=== PATIENT | female | born 1955 | race Caucasian/White ===

== ENCOUNTER 2020-11-09 19:38 | Emergency (ER) | payer OTHER ==
[2020-11-09] MEDS ORDERED: Morphine 4 MG/ML VIAL IVPUSH STA (19:43)
[2020-11-09] MEDS ORDERED: Sodium Chloride 0.9% 10 ML Syringe FLUSH PRN (19:43)
[2020-11-09] MEDS ORDERED: Sodium Chloride 0.9% 1,000 ML IV SCH (19:45)
[2020-11-09] MEDS ORDERED: Iopamidol 755 Mg/ML 100 ML Bottle IV ONE (20:57)
[2020-11-09] MEDS ORDERED: Labetalol 20 MG/4 ML Syringe IVPUSH STA (22:04)
[2020-11-09] MEDS ORDERED: Tamsulosin 0.4 MG Cap.ER PO STA (22:08)
[2020-11-09] MEDS ORDERED: Ketorolac 30 MG/ML SDV IVPUSH STA (22:08)
--- NOTE | 2020-11-09 22:10 | EDM.PDOC ---
ED HPI GENERAL MEDICAL PROBLEM - General Chief Complaint: General Stated Complaint: back and abodminal pain Time Seen by Provider: 11/09/20 19:55 Source of Information: Reports: Patient History Limitations: Reports: No Limitations - History of Present Illness INITIAL COMMENTS - FREE TEXT/NARRATIVE: Patient presented to the ED because of RT and Left flank pain which started yest erday and worse today,. the pain is sharp,8/10. there is no nausea,vomiting, fever,chills. No N/V/D or constipation. - Related Data Allergies Allergy/AdvReac Type Severity Reaction Status Date / Time No Known Allergies Allergy Verified 11/10/20 03:25 Home Meds: Home Meds Albuterol [Proair HFA] 2 puff PO Q4HR PRN 07/21/16 [History] Budesonide/Formoterol [Symbicort 160-4.5 MCG] 2 puff INH BID PRN 07/21/16 [History] Triamcinolone Acetonide 1 applic TOP TID PRN 07/21/16 [History] Venlafaxine [Venlafaxine HCl ER] 150 mg PO DAILY 07/21/16 [History] atorvaSTATin Calcium [Atorvastatin Calcium] 80 mg PO DAILY 07/21/16 [History] Acetaminophen/HYDROcodone [[place] 325-5 MG] 1 - 2 tab PO Q4H PRN #15 tab 11/09/20 [Rx] Tamsulosin HCl [Flomax] 0.4 mg PO DAILY #10 cap.er.24h 11/09/20 [Rx] .Calcium 1 dose PO DAILY 11/10/20 [History] .Multivitamin 1 dose PO DAILY 11/10/20 [History] .Vitamin B6 1 dose PO DAILY 11/10/20 [History] .Vitamin D 1 dose PO DAILY 11/10/20 [History] lisinopriL [Lisinopril] 5 mg PO DAILY 11/10/20 [History] metFORMIN [Glucophage] 500 mg PO BIDMEALS 11/10/20 [History] Past Medical History HEENT History: Reports: Allergic Rhinitis Cardiovascular History: Reports: High Cholesterol, Hypertension Respiratory History: Reports: Asthma, Sleep Apnea Gastrointestinal History: Reports: GERD Musculoskeletal History: Reports: Back Pain, Chronic Neurological History: Reports: Migraines Endocrine/Metabolic History: Reports: Diabetes, Type II Dermatologic History: Reports: Eczema - Past Surgical History GI Surgical History: Reports: Bariatric Procedure, Cholecystectomy Female Surgical History: Reports: Section Social & Family History - Caffeine Use Caffeine Use: Reports: Coffee ED ROS GENERAL - Review of Systems Review Of Systems: See Below Constitutional: Reports: No Symptoms HEENT: Reports: No Symptoms Respiratory: Reports: No Symptoms Cardiovascular: Reports: No Symptoms Endocrine: Reports: No Symptoms GI/Abdominal: Reports: Abdominal Pain : Reports: No Symptoms Musculoskeletal: Reports: No Symptoms Skin: Reports: No Symptoms Neurological: Reports: No Symptoms Psychiatric: Reports: No Symptoms Hematologic/Lymphatic: Reports: No Symptoms ED EXAM, GENERAL - Physical Exam Exam: See Below Exam Limited By: No Limitations General Appearance: Alert, No Apparent Distress Ears: Normal External Exam, Normal Canal Nose: Normal Inspection, Normal Mucosa, No Blood Throat/Mouth: Normal Inspection Head: Atraumatic, Normocephalic Neck: Normal Inspection, Supple, Non-Tender, Full Range of Motion Respiratory/Chest: No Respiratory Distress, Lungs Clear, Normal Breath Sounds, No Accessory Muscle Use, Chest Non-Tender Cardiovascular: Normal Peripheral Pulses, Regular Rate, Rhythm, No Edema, No Gallop, No JVD, No Murmur, No Rub GI/Abdominal: Normal Bowel Sounds, Soft, No Organomegaly, No Distention, Other (RCVAT) Back Exam: Normal Inspection Extremities: Normal Inspection, Normal Range of Motion Neurological: Oriented, CN II-XII Intact, Normal Cognition, Normal Gait Psychiatric: Normal Affect Course - Vital Signs Text/Narrative:: Labd/CT result was reviewed and discussed with patient NS 1 L bolus Toradol 30 mg IV x1 Morphine 4 mg IV x1 Flomax 1 PO x1 Patient developed hypertensive crisis while in the ED most likely because of her pain. Labetalol 20 mg IV was given and her BP was 150/99 prior to discharge and asymptomatic. Last Recorded V/S: Last Vital Signs Temp 36.6 C 11/09/20 19:50 Pulse 86 11/09/20 22:40 Resp 18 11/09/20 22:40 BP 156/91 H 11/09/20 22:40 Pulse Ox 96 11/09/20 22:40 - Orders/Labs/Meds Orders: Active Orders 24 hr Category Date Time Status Abdomen Pelvis w Cont [CT] Stat Exams 11/09/20 20:45 Taken Saline Lock Insert [OM.PC] Routine Oth 11/09/20 19:43 Ordered Labs: Laboratory Tests 11/09/20 11/09/20 11/09/20 Range/Units 20:00 20:00 20:00 WBC 14.7 H (3.0-10.3) x10-3/uL RBC 4.72 (3.60-5.20) x10(6)uL Hgb 11.1 L (11.4-15.5) g/dL Hct 36.0 (34.2-48.2) % MCV 76.4 L (76.7-100.5) fL MCH 23.6 L (23.9-33.9) pg MCHC 30.9 L (31.9-34.8) g/dL RDW 15.7 (12.3-16.5) % Plt Count 297 (151-488) x10(3)uL MPV 9.4 (7.1-12.4) fL Add Manual Diff Yes Neutrophils % (Manual) 88 H (46-82) % Band Neutrophils % 1 (0-6) % Lymphocytes % (Manual) 7 L (13-37) % Monocytes % (Manual) 4 (4-12) % Sodium 140 (135-145) mmol/L Potassium 3.8 (3.5-5.3) mmol/L Chloride 98 L (100-110) mmol/L Carbon Dioxide 27 (21-32) mmol/L BUN 13 (7-18) mg/dL Creatinine 0.9 (0.55-1.02) mg/dL Est Cr Clr Drug Dosing TNP Estimated GFR (MDRD) > 60 (>60) BUN/Creatinine Ratio 14.4 (9-20) Glucose 178 H (80-116) mg/dL Calcium 9.1 (8.6-10.2) mg/dL Total Bilirubin 0.8 (0.1-1.3) mg/dL AST 24 (5-25) IU/L ALT 29 (12-36) U/L Alkaline Phosphatase 146 H (56-112) IU/L Total Protein 7.6 (6.0-8.0) g/dL Albumin 3.9 (3.2-4.6) g/dL Globulin 3.7 g/dL Albumin/Globulin Ratio 1.1 Amylase 43 (25-115) U/L Lipase 52 L (73-393) U/L Meds: Medications Discontinued Medications Generic Name Dose Route Start Last Admin Trade Name Hugoq PRN Reason Stop Dose Admin Sodium Chloride 1,000 mls @ 999 mls/hr 11/09/20 19:45 11/09/20 20:10 Normal Saline IV 999 mls/hr ASDIRECTED OLEGARIO Administration Iopamidol 100 ml 11/09/20 20:57 11/09/20 21:12 Iopamidol 755 Mg/Ml 100 Ml Bottle IV 11/09/20 20:58 100 ml . DIRECTED ONE Administration Ketorolac Tromethamine 30 mg 11/09/20 22:08 11/09/20 22:16 Ketorolac 30 Mg/Ml Sdv IVPUSH 11/09/20 22:09 30 mg NOW STA Administration Labetalol HCl 20 mg 11/09/20 22:04 11/09/20 22:08 Labetalol 20 Mg/4 Ml Syringe IVPUSH 11/09/20 22:05 20 mg NOW STA Administration Protocol Morphine Sulfate 4 mg 11/09/20 19:43 11/09/20 20:15 Morphine 4 Mg/Ml Vial IVPUSH 11/09/20 19:44 4 mg NOW STA Administration Sodium Chloride 10 ml 11/09/20 19:43 Sodium Chloride 0.9% 10 Ml Syringe FLUSH ASDIRECTED PRN Keep Vein Open Tamsulosin HCl 0.4 mg 11/09/20 22:08 11/09/20 22:14 Tamsulosin 0.4 Mg Cap.Er PO 11/09/20 22:09 0.4 mg NOW STA Administration Departure - Departure Time of Disposition: 22:30 Disposition: Home, Self-Care 01 Condition: Good Clinical Impression: Nephrolithiasis, Hypertensive crisis - Discharge Information Prescriptions: Tamsulosin HCl [Flomax] 0.4 mg PO DAILY #10 cap.er.24h Acetaminophen/HYDROcodone [[place] 325-5 MG] 1 - 2 tab PO Q4H PRN #15 tab PRN Reason: Pain Instructions: Kidney Stones, [id number], Hypertension, Adult, [id number] Referrals: Chuyita Warner NP [Primary Care Provider] - Forms: ED Department Discharge Additional Instructions: Please read discharge instructions on kidney stone Increase oral fluids Flomax 1 tablet daily for 10 days [place]/hydrocodone 5/325, 1-2 tablets every 4-6 hours as needed for pain Follow up with your doctor this week Sepsis Event Note (ED) - Evaluation Sepsis Screening Result: No Definite Risk - Focused Exam Vital Signs: Vital Signs Pulse Resp BP Pulse Ox 11/09/20 22:40 86 18 156/91 H 96 - My Orders Last 24 Hours: My Active Orders 11/09/20 19:43 Saline Lock Insert [OM.PC] Routine 11/09/20 20:45 Abdomen Pelvis w Cont [CT] Stat - Assessment/Plan Last 24 Hours: My Active Orders 11/09/20 19:43 Saline Lock Insert [OM.PC] Routine 11/09/20 20:45 Abdomen Pelvis w Cont [CT] Stat
[2020-11-10 02:48] VITALS: BP 156/91; PULSE 86
== END 2020-11-09 23:00 | disposition home or self-care (01) ==
LOC: FB.ED 19:38
DX: N13.2 Hydronephrosis with renal and ureteral calculous obstruction (principal); I16.9 Hypertensive crisis, unspecified; E78.00 Pure hypercholesterolemia, unspecified; I10 Essential (primary) hypertension; J45.909 Unspecified asthma, uncomplicated; K21.9 Gastro-esophageal reflux disease without esophagitis; E11.9 Type 2 diabetes mellitus without complications; Z79.84 Long term (current) use of oral hypoglycemic drugs; Z79.899 Other long term (current) drug therapy
CPT/HCPCS: 36415; 74177; 80053; 82150; 83690; 85025; 96374; 96375; 99283; 99284; A9270; J1885; J2270; J3490; J7030; Q9967